=== PATIENT | female | born 1970 | race Caucasian/White ===

== ENCOUNTER 2024-12-30 13:39 | Emergency (ER) | payer OTHER ==
[2024-12-30] MEDS: ONDANSETRON 4 MG/2 ML VIAL IVPUSH ONE (14:54)
[2024-12-30] MEDS: SODIUM CHLORIDE 1,000 ML IV STA (14:54)
[2024-12-30 14:55] LABS: ABSOLUTE IMMATURE GRANULOCYTES 0.03 x10^3/uL (0.0-0.031); BASOPHILS # 0.03 x10^3/uL (0.01-0.08); EOSINOPHIL % 1.1 % (0.7-5.8); EOSINOPHILS # 0.09 x10^3/uL (0.04-0.36); HEMATOCRIT 38.5 % (34.1-44.9); HEMOGLOBIN 12.2 g/dL (11.2-15.7); MCHC 31.7 g/dl (32.2-35.5); MEAN CELL VOLUME 83.9 fl (79.4-94.8); MEAN PLT VOLUME 10.7 fl (9.4-12.3); MONOCYTE # 0.42 x10^3/uL (0.24-0.86); PLATELET COUNT 185 x10^3/uL (182-369); RDW 15.2 % (12.3-16.6)
[2024-12-30 14:56] VITALS: BP 102/68; PULSE 77; RESP 16; TEMP 98.5; BMI 27.8
[2024-12-30 14:57] LABS: EPI CELLS 20 /uL (0-25.1); HYALINE CASTS 1 /uL (0-3.1); URINE APPEARANCE CLEAR; URINE BACTERIA 58 /uL (0-1359); URINE BILIRUBIN NEGATIVE (NEGATIVE); URINE COLOR YELLOW; URINE GLUCOSE (UA) NEGATIVE (NEGATIVE); URINE KETONE NEGATIVE (NEGATIVE); URINE LEUK ESTERASE 1+ (NEGATIVE); URINE NITRITE NEGATIVE (NEGATIVE); URINE PROTEIN NEGATIVE (NEGATIVE); URINE RBC 69 /uL (0-23.9); URINE UROBILINOGEN 0.2 mg/dL (0.2-1.0); URINE WBC 21 /uL (0-25.8)
[2024-12-30 15:19] LABS: POTASSIUM 3.7 mmol/L (3.5-5.1)
[2024-12-30 15:21] LABS: ALBUMIN 3.5 g/dl (3.4-5.0); BLOOD UREA NITROGEN 11.7 mg/dL (7-18); CALCIUM 9.4 mg/dL (8.5-10.1)
[2024-12-30 15:25] LABS: CREATININE 0.6 mg/dL (0.55-1.3)
[2024-12-30 15:26] LABS: BILIRUBIN,TOTAL 0.4 mg/dL (0.2-1); TOT PROT 7.1 g/dl (6.4-8.2)
== END 2024-12-30 15:48 | disposition home or self-care (01) ==
LOC: JER 13:39
PROC: 3E033GC Introduction of Other Therapeutic Substance into Peripheral Vein, Percutaneous Approach (ICD-10-PCS; principal; 2024-12-30)
PROC: 3E0337Z Introduction of Electrolytic and Water Balance Substance into Peripheral Vein, Percutaneous Approach (ICD-10-PCS; 2024-12-30)
DX: K52.9 Noninfective gastroenteritis and colitis, unspecified (principal); R11.2 Nausea with vomiting, unspecified; R19.5 Other fecal abnormalities; R10.84 Generalized abdominal pain
CPT/HCPCS: 36415; 80053; 81003; 83690; 84703; 85025; 87086; 99284-25